=== PATIENT | female | born 1970 | race Hispanic/Latino ===

== ENCOUNTER 2016-11-25 19:38 | Emergency (ER) | payer MEDICARE ==
[2016-11-25 20:16] VITALS: BP 123/75
[2016-11-25] MEDS ORDERED: MOTRIN PO ONE (23:29)
== END 2016-11-26 00:22 | disposition left against medical advice (07) ==
LOC: ED 19:38
DX: M25.551 Pain in right hip (principal); Z53.21 Procedure and treatment not carried out due to patient leaving prior to being seen by health care provider

== ENCOUNTER 2017-04-04 13:32 | Emergency (ER) | payer MEDICARE | END 2017-04-04 13:33 | disposition left against medical advice (07) | LOC: ED 13:32 | DX: M54.5 Low back pain (principal); Z53.21 Procedure and treatment not carried out due to patient leaving prior to being seen by health care provider ==

== ENCOUNTER 2017-04-07 16:33 | Emergency (ER) | payer MEDICARE ==
[2017-04-07 17:44] VITALS: BP 156/82
[2017-04-07] MEDS: MORPHINE IM ONE (22:51)
[2017-04-07] MEDS: PERCOCET 5/325 PO ONE (22:54)
[2017-04-07] MEDS: BENADRYL PO ONE (22:54)
[2017-04-07] MEDS: FLEXERIL PO ONE (23:00)
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
[2017-04-07] MEDS: TRIPLE ANTIBIOTIC TP ONE (23:30)
== END 2017-04-07 23:39 | disposition home or self-care (01) ==
LOC: ED 16:33
DX: M54.41 Lumbago with sciatica, right side (principal); F17.200 Nicotine dependence, unspecified, uncomplicated
CPT/HCPCS: 99282; A6250

== ENCOUNTER 2018-07-22 19:43 | Emergency (ER) | payer MEDICARE ==
[2018-07-22 19:54] VITALS: BP 171/92
[2018-07-22] MEDS ORDERED: NORCO 5/325 PO ONE (20:20)
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
--- NOTE | 2018-07-22 21:46 | XRay Report ---
FINAL REPORT PROCEDURE: XR SHOULDER 2+V LT TECHNIQUE: LEFT shoulder radiographs including AP views in internal and external rotation. CPT 02208 HISTORY: fall shoulder pain COMPARISON: No prior studies are available for comparison. FINDINGS: Fracture (s) and/or Dislocation(s): An acute nondisplaced comminuted fracture is noted involving thes e surgical neck of humerus. Joint space(s): Normal . Soft tissues: Normal . Bone mineralization: Normal . Foreign bodies: None . IMPRESSION: Acute fracture surgical neck humerus
--- NOTE | 2018-07-22 21:47 | XRay Report ---
FINAL REPORT PROCEDURE: XR HUMERUS 2+V LT TECHNIQUE: LEFT humerus radiographs, AP and lateral views. HISTORY: fall arm pain COMPARISON: No prior studies are available for comparison. FINDINGS: Fracture (s) and/or Dislocation(s): Acute nondisplaced comminuted fracture is noted involving the kirill gical neck of humerus. Joint space(s): Normal. Soft tissues: Normal. Bone mineralization: Normal. Foreign bodies: None. IMPRESSION: Acute fracture surgical neck of humerus.
== END 2018-07-22 22:23 | disposition home or self-care (01) ==
LOC: ED 19:43
DX: S42.292A Other displaced fracture of upper end of left humerus, initial encounter for closed fracture (principal); Z95.818 Presence of other cardiac implants and grafts; Z88.1 Allergy status to other antibiotic agents; W17.89XA Other fall from one level to another, initial encounter; Y93.89 Activity, other specified; Y92.89 Other specified places as the place of occurrence of the external cause; Y99.8 Other external cause status
CPT/HCPCS: 99283